=== PATIENT | male | born 1945 | race Caucasian/White ===

== ENCOUNTER 2017-04-18 06:34 | Day surgery (SDC) | payer OTHER ==
[2017-04-14 11:03] VITALS: BMI 19.1
[2017-04-18] MEDS ORDERED: PROPOFOL 20 ML ONE ×2 (07:00)
[2017-04-18] MEDS ORDERED: LIDOCAINE HCL/PF 2% SDV 5ML VIAL ONE (07:00)
[2017-04-18 08:49] VITALS: TEMP 97.4
[2017-04-18 09:10] VITALS: BP 124/64; PULSE 66
== END 2017-04-18 09:25 | disposition home or self-care (01) ==
LOC: FASU-ENDO 06:34
PROVIDERS: ATTEND Internal Medicine Gastroenterology
PROC: 0DJD8ZZ Inspection of Lower Intestinal Tract, Via Natural or Artificial Opening Endoscopic (ICD-10-PCS; principal; 2017-04-18 08:21)
DX: Z12.11 Encounter for screening for malignant neoplasm of colon (principal); Z86.010 Personal history of colon polyps

== ENCOUNTER → 2020-08-11 | Day surgery (SDC) | payer OTHER ==
[2020-08-06 15:28] VITALS: BMI 18.3
[~2020-08-11] MED LIST: LIDOCAINE HCL/PF 2% SDV 5ML VIAL ONE; PROPOFOL 20 ML ONE
[2020-08-11 09:34] VITALS: BP 123/64; PULSE 70; TEMP 97
== END | disposition home or self-care (01) ==
LOC: FASU-ENDO 06:33
PROVIDERS: ATTEND Internal Medicine Gastroenterology
PROC: 0DBN8ZX Excision of Sigmoid Colon, Via Natural or Artificial Opening Endoscopic, Diagnostic (ICD-10-PCS; principal; 2020-08-11)
PROC: 0DB98ZX Excision of Duodenum, Via Natural or Artificial Opening Endoscopic, Diagnostic (ICD-10-PCS; 2020-08-11)
PROC: 0DB68ZX Excision of Stomach, Via Natural or Artificial Opening Endoscopic, Diagnostic (ICD-10-PCS; 2020-08-11)
DX: K29.50 Unspecified chronic gastritis without bleeding (principal); K31.9 Disease of stomach and duodenum, unspecified; K62.89 Other specified diseases of anus and rectum; R19.7 Diarrhea, unspecified; R63.4 Abnormal weight loss; Z68.1 Body mass index [BMI] 19.9 or less, adult
CPT/HCPCS: 88305-TC; 88342-TC